=== PATIENT | female | born 1950 | race Caucasian/White ===

== ENCOUNTER 2021-10-09 12:04 | Emergency (ER) | payer MEDICARE, SELFPAY ==
--- NOTE | 2021-10-09 12:11 | ED.URI ---
HPI - URI/Sore Throat General Chief Complaint: Upper Respiratory Infection Stated Complaint: Chest Congestion/Cough Source: patient Mode of arrival: ambulatory Limitations: no limitations History of Present Illness HPI Narrative: 71-year-old female presented for complaint of wheezing and cough with green sputum x1 week. She endorses shortness of breath with exertion. She has been taking her home nebulizer about every 4 hours for the last week and prn rescue inhaler. She has not used neb today. She had negative Covid test yesterday. She was unable to be seen by her PCP. She denies chest pain, palpitations, fatigue, nausea, vomiting or diarrhea, fever or chills. MD elicited complaint: cough and sore throat Related Data Home Medications Medication Instructions Recorded Confirmed amlodipine-benazepril 1 cap PO DAILY 10/09/21 10/09/21 biotin 5,000 mcg SUBLINGUAL DAILY 10/09/21 10/09/21 buspirone 20 mg PO BID 10/09/21 10/09/21 escitalopram oxalate 20 mg PO DAILY 10/09/21 10/09/21 levothyroxine 100 mcg PO DAILY 10/09/21 10/09/21 mirtazapine 15 mg PO DAILY 10/09/21 10/09/21 trazodone 50 mg PO HS 10/09/21 10/09/21 Allergies Allergy/AdvReac Type Severity Reaction Status Date / Time erythromycin base Allergy Nausea Verified 10/09/21 12:22 levofloxacin [From Levaquin] Allergy Hallucinati Verified 10/09/21 12:22 ng Review of Systems Review of Systems: CONSTITUTIONAL: Denies malaise, chills, sweats, or fever. EYES: Denies visual changes, redness, or discharge. ENT: Reports rhinorrhea, congestion CARDIOVASCULAR: Denies chest pain, palpitations, or edema. RESPIRATORY: Reports cough, wheezing and dyspnea on exertion GASTROINTESTINAL: Denies abdominal pain, nausea, vomiting, diarrhea SKIN: Denies rash or itching. MUSCULOSKELETAL: Denies myalgia. NEUROLOGIC: Denies headache. All systems reviewed & are unremarkable except as noted in HPI and below PMFSH Comments At time of signature, agree with nursing past medical, surgical, social and family history. There is no relevant family history pertinent to the presenting complaint Exam Narrative: GENERAL: Well-appearing, well-nourished, and in no acute distress. HEAD: Normocephalic EYES: PERRLA, conjunctivae clear ENT: Nares clear, turbinates edematous and erythematous, clear discharge. Mucous membranes moist. TM pearly patel with dull light reflex bilaterally; no tragal tenderness. Oropharynx erythematous without lesions. Tonsils enlarged and without exudate, no drooling, no hoarseness, no trismus, uvula midline. NECK: Supple. No lymphadenopathy CHEST: Audible wheezing, exp wheezing throughout. No respiratory distress, speaks in full sentences. HEART: Regular rate and rhythm. No murmur heard. SKIN: Warm, dry, no rash. NEURO: Alert and oriented x3. PSYCH: Normal mood and affect Course Course Emergency Course: Patient is aware of diagnosis, understands and agrees to treatment plan. Anticipatory guidance given. Patient agrees to follow-up as directed and is aware of reasons to seek care at the emergency department. Portions of this record may have been created with voice recognition software Level of Care: Express Care Visit Vital Signs Vital signs: Vital Signs Temperature 97.5 F L 10/09/21 12:15 Pulse Rate 78 10/09/21 12:15 Respiratory Rate 18 10/09/21 12:15 Blood Pressure 134/77 10/09/21 12:15 Pulse Oximetry 98 10/09/21 12:15 Temperature 97.5 F L 10/09/21 12:26 Pulse Rate 78 10/09/21 12:26 Respiratory Rate 18 10/09/21 12:26 Blood Pressure 134/77 10/09/21 12:26 Pulse Oximetry 98 10/09/21 12:26 Reviewed MDM - URI/Sore Throat MDM Narrative Medical decision making narrative: Differential diagnosis considered: Hernandez virus, strep pharyngitis, allergic rhinitis, upper respiratory tract infection, sinusitis, rhinosinusitis, nasopharyngitis. viral pharyngitis, otitis media, otitis externa, pneumonia, bronchitis, viral cough syndrome, viral syndr
[2021-10-09 12:15] VITALS: BP 134/77; PULSE 78; RESP 18; TEMP 36.4; O2SAT 98
[2021-10-09 12:26] VITALS: BP 134/77; PULSE 78; RESP 18; TEMP 36.4; O2SAT 98
== END 2021-10-09 12:59 | disposition home or self-care (01) ==
PROVIDERS: Emergency Provider Nurse Practitioner Family; PCP Family Medicine
DX: J40 Bronchitis, not specified as acute or chronic (principal); I10 Essential (primary) hypertension; J45.909 Unspecified asthma, uncomplicated; E03.9 Hypothyroidism, unspecified; F41.9 Anxiety disorder, unspecified; F32.A Depression, unspecified; Z96.652 Presence of left artificial knee joint
CPT/HCPCS: 99213; G0463

== ENCOUNTER → 2024-01-03 16:03 | Outpatient (REF) | payer MEDICARE, SELFPAY | LOC: ANHLAB 16:03 | PROVIDERS: PCP Family Medicine; Visit Provider Plastic Surgery | DX: D48.5 Neoplasm of uncertain behavior of skin (principal) | CPT/HCPCS: 88305 ==